=== PATIENT | male | born 1950 | race Caucasian/White ===

== ENCOUNTER → 2016-12-26 | Outpatient (CLI) | payer OTHER ==
[~2016-12-26] MED LIST: ASPI325T PO; ATOR1TAB19 PO; BISO10TA6 PO; CHLO25TA GT; DEXA4TA PO; FAMO1TAB25 PO; FLUTISP; LISI10TA4 PO; MULT1TAB10 PO; PREV15CA11 PO; PROA1AER INH
--- NOTE | 2016-12-28 12:51 | RADONC ---
RADIATION ONCOLOGY FOLLOWUP NOTE DATE: 12/26/2016 CHART NUMBER: [id number] DIAGNOSIS: Lung cancer. STAGE: IV, metastatic. ECOG PERFORMANCE STATUS: 1. FOLLOWUP NOTE: Mr. 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 The patient presents today reporting that he is generally doing well with no new complaints related to his radiation therapy. He continues to have some discomfort in the sternal area as well as the back. He continues to be short of breath but the shortness of breath has not increased or changed. He has no cough or other complaints. The patient's review of systems is positive for some continued discomfort in the back and sternal area as well as continued shortness of breath, but is otherwise noncontributory. He denies nausea, vomiting, fevers, chills, night sweats, diplopia, headaches, anxiety or depression, anorexia, weight loss, visual disturbances, chest pain, urinary or bowel difficulties, bone pain, or neurological problems. PHYSICAL EXAMINATION: The patient is a well-developed, well-nourished male in no acute distress. HEENT exam is normocephalic, atraumatic. Extraocular movements are intact. There is no palpable cervical, supraclavicular, infraclavicular, axillary, or inguinal lymphadenopathy present. Lungs are clear to auscultation and percussion. Heart has a regular rate and rhythm. Abdomen is benign with no hepatosplenomegaly, masses, or tenderness. Rectal examination reveals a normal anal sphincter tone. His prostate is smooth with no evidence of nodularity. Skeletal examination reveals no tenderness to pressure or percussion of the bony skeleton. Extremities reveal no clubbing, cyanosis, or edema. Neurologic exam is grossly intact as is the remainder of the physical examination. ASSESSMENT: The patient is clinically doing well at this point. He is scheduled for another chemotherapeutic cycle of beginning tomorrow. He is receiving chemotherapy every 3 weeks. In light of the fact that he is being managed closely by his medical oncologist, Dr. Curry and rescanning is scheduled in the near future, I have scheduled him for a followup in our office in 4 months' time. cc: *Dr. Ernesto Rosario *Dr.Stephen Curry
== END ==
LOC: M ONCR 13:44
PROVIDERS: ATTEND Radiology Radiation Oncology
DX: C34.12 Malignant neoplasm of upper lobe, left bronchus or lung (principal)

== ENCOUNTER → 2016-12-29 | Outpatient (CLI) | payer OTHER ==
--- NOTE | 2016-12-29 12:11 | REP ---
MRI BRAIN WITHOUT AND WITH CONTRAST: HISTORY: Lung carcinoma. CONTRAST: ProHance 23.5 mL. There are no areas of abnormal signal intensity in the brain. There is no intraparenchymal hemorrhage, infarct, mass or midline shift. There is no abnormal enhancement. The ventricular system and cortical sulci are dilated consistent with minimal volume loss. There is no extracerebral collection. Minimal mucosal thickening is present in the maxillary and right ethmoid sinuses. IMPRESSION: 1. There is no intracranial lesion. 2. Minimal volume loss. Signed by Jesús Ureña MD 12/29/2016 12:16 P
== END ==
LOC: M RAD 09:50
DX: C34.90 Malignant neoplasm of unspecified part of unspecified bronchus or lung (principal); R51 Headache
CPT/HCPCS: 70553; A9576

== ENCOUNTER 2017-02-13 13:49 | Outpatient (RCR) | payer OTHER | END 2017-02-16 | LOC: M ONCR 13:49 | PROVIDERS: ATTEND Radiology Radiation Oncology | DX: C34.12 Malignant neoplasm of upper lobe, left bronchus or lung (principal); C79.51 Secondary malignant neoplasm of bone ==

== ENCOUNTER → 2017-02-13 | Outpatient (CLI) | payer OTHER | LOC: M RAD 13:46 | PROVIDERS: ATTEND Radiology Radiation Oncology | DX: C34.90 Malignant neoplasm of unspecified part of unspecified bronchus or lung (principal) ==

== ENCOUNTER → 2017-02-13 | Outpatient (CLI) | payer OTHER ==
--- NOTE | 2017-02-13 11:37 | RADONC ---
RADIATION ONCOLOGY SIMULATION NOTE: DATE: 02/13/2017 CHART NO: [id number] Mr. Raymond was taken to the CT scan for CT simulation of his cervical spine field. CT was accomplished without difficulty or discomfort. Radiation treatment planning is underway and radiation treatments will begin subsequently. An immobilization device and mask were created without difficulty or discomfort. This will also be utilized throughout the course of treatment. It was done without difficulty or discomfort. I was physically present throughout the course of CT simulation.
--- NOTE | 2017-02-13 11:59 | RADONC ---
RADIATION ONCOLOGY FOLLOWUP CONSULTATION NOTE: DATE: 02/13/2017 CHART NO: [id number] DIAGNOSIS: Lung cancer. STAGE: IV, metastatic. ECOG PERFORMANCE STATUS: 2 Mr. Raymond is a very pleasant 66-year-old white male with the diagnosis of metastatic poorly differentiated adenocarcinoma of the left lung and main stem bronchus who is presenting to us today for consideration of palliative radiation therapy to his C4 vertebral body. HISTORY OF PRESENT ILLNESS: The patient is well-known to our department and was first seen by us on 10/19/2016 for consideration of palliative radiation therapy for a lesion encompassing his left upper lobe bronchus and left lower lobe bronchus. We treated the patient to that area as well as to the T5 vertebral body for a dose of 3750 cGy delivered in 15 fractions of 250 cGy each from 10/24/2016 through 11/16/2016. The patient did well with that treatment although he reports more recent increased shortness of breath, which could be expected following radiation. Over the past month or more, the patient has had increasing neck pain as well as scalp pain. An MRI of the brain was undertaken on 12/29/2016, which showed no intracranial lesions. An MRI of the C-spine was undertaken, which did show increased uptake at the C4 vertebral body. There was no cord compression. There was no evidence of nerve root compression. The signal intensity enhancement of the C4 vertebral body was consistent with metastatic disease. CT scans of the abdomen and pelvis were done on 02/05/2017 as well. This showed no evidence of liver or spleen metastases. There were multiple lytic lesions throughout the pelvic bones and within the T10 vertebral body, which appeared to be progression when compared with the PET/CT dated 10/09/2016. There were indeterminate bilateral adrenal nodules as well. A CT scan of the thorax done the same date, 02/05/2017, continued to show a lytic lesion at the T4 vertebral body, which was more well-defined and thought to be a healing metastasis. There was marked improvement of the left hilar mass and caodaism of patency of the central airways of the left lung and decreased stenosis of the left lower lobe pulmonary artery. The patient is presently on morphine and is now presenting for consideration of palliative radiation therapy for his painful C4 vertebral body metastasis. PAST MEDICAL HISTORY: The patient's past medical history is positive for hypertension, hypercholesterolemia, arthritis and paroxysmal atrial tachy arrhythmias. ALLERGIES: The patient has no known drug allergies. SOCIAL HISTORY: The patient has smoked 1-1/2 packs of cigarettes per day for 15 years. He quit 1984. He drinks alcohol socially. FAMILY HISTORY: The patient's family history is positive for mother with lung cancer. REVIEW OF SYSTEMS: The patient's review of systems is positive for continued weight loss. His has lost over 40 pounds. He has shortness of breath which he says increased over the past month or so. He also is complaining of his neck and head pain. He denies nausea, vomiting, fevers, chills, night sweats, diplopia. He does have headaches. He denies anxiety, visual disturbances, urinary or bowel difficulties. PHYSICAL EXAMINATION: Vital signs: O2 saturation 96%, blood pressure 96/60, temperature 98.7, pulse 72, respirations 20, height 6 feet 2 inches weight 254 pounds. The patient is a well-developed, well-nourished male in no acute distress. HEENT exam is normocephalic, atraumatic. Extraocular movements are intact. There is no palpable cervical, supraclavicular, infraclavicular, axillary, or inguinal lymphadenopathy present. Lungs are clear to auscultation and percussion. Heart has a regular rate and rhythm. Abdomen is benign with no hepatosplenomegaly, masses, or tenderness. Skeletal examination reveals no tenderness to pressure or percussion of the bony skeleton. Extremities reveal no clubbing, cyanosis, or edema. Neurologic exam is grossly intact, as is the remainder of the physical examination. ASSESSMENT: Mr. Raymond is presenting to us today for consideration of palliative radiation therapy to his C-spine. Clearly this is a painful lesion and therefore he is a candidate for external beam radiation therapy for palliation. I have discussed with the patient in detail the potential benefits as well as possible acute and chronic sequelae of external beam radiation therapy. We have discussed logistics of treatment planning, simulation and subsequent fractionated daily radiation treatments. I have scheduled the patient for simulation today and radiation treatments will begin subsequently. Thank you for allowing us to participate in the care of this very pleasant gentleman. If I could be of any further assistance or provide you any information, please free to contact me anytime. As always with warmest personal regards, cc: *Dr. Ernesto Rosario *Dr.Stephen Curry
== END ==
LOC: M ONCR 09:51
PROVIDERS: ATTEND Radiology Radiation Oncology
DX: C34.90 Malignant neoplasm of unspecified part of unspecified bronchus or lung (principal)

== ENCOUNTER 2017-02-19 08:40 | Outpatient (RCR) | payer OTHER ==
--- NOTE | 2017-02-19 15:11 | RADONC ---
RADIATION ONCOLOGY PROGRESS NOTE: DATE OF SERVICE: 02/19/2017 CHART NO: [id number] Mr. Raymond is presently at a dose of 600 cGy to his C-spine and is tolerating treatments quite well at this point with no complaints related to his radiation therapy. He is having no increased pain or other problems. REVIEW OF SYSTEMS: The patient's review of systems is largely noncontributory. He reports feeling much better since the change of his pain medication. He denies nausea, vomiting, fevers, chills, night sweats, diplopia, headaches, anxiety or depression, anorexia, weight loss, visual disturbances, chest pain, urinary or bowel difficulties, bone pain, or neurological problems. PHYSICAL EXAMINATION: The patient's skin is in good condition with no evidence of radiation change present. There is no moist or dry desquamation. The remainder of his physical exam remains unchanged. Mr. Raymond is tolerating treatments quite well and radiation will continue as scheduled.
--- NOTE | 2017-02-27 06:35 | RADONC ---
RADIATION ONCOLOGY PROGRESS NOTE DATE: 02/26/2017 CHART NUMBER: [id number]. PROGRESS NOTE: Mr. Hernandez is presently at a dose of 2100 centigrade to his C-spine and is tolerating treatments quite well at this point with no complaints related to his radiation therapy. He reports a total resolution of his neck pain and headaches. He is having no problems at all at this point. REVIEW OF SYSTEMS: The patient's review of systems is positive for some continued discomfort in the right hip and sacral area on the left but is otherwise noncontributory. Denies nausea, vomiting, fevers, chills, night sweats, diplopia, headaches, anxiety or depression, anorexia, weight loss, visual disturbances, chest pain, urinary or bowel difficulties, bone pain, or neurological problems. PHYSICAL EXAMINATION: The patient's skin is in good condition with no evidence of radiation change present. There is no moist or dry desquamation. The remainder of his physical exam remains unchanged. Mr. Hernandez is doing quite well and radiation will continue as scheduled.
--- NOTE | 2017-03-03 07:47 | RADONC ---
RADIATION ONCOLOGY DATE: 03/01/2017 TREATMENT SUMMARY CHART NUMBER: [id number]. DIAGNOSIS: Lung cancer stage IV, metastatic. ECOG PERFORMANCE STATUS: 0. TREATMENT SUMMARY: Mr. Raymond is a very pleasant 66-year-old white male with the diagnosis of metastatic poorly differentiated adenocarcinoma of the left lung, the main stem bronchus, who presented to us for consideration of palliative radiation therapy to his C4 vertebral body which was causing him excruciating pain and headaches. We treated the patient to his spine from the levels of C3 through C5 for a dose of 3000 cGy delivered in 10 fractions of 300 cGy each over 14 elapsed days from 02/15/2017 through 03/01/2017. The patient's vertebral bodies were treated on the linear accelerator utilizing a 6 MV photon beam via parallel opposed lateral tobin. Mr. Raymond tolerated his treatments quite well with no complaints related to his radiation therapy. He had complete resolution of his pain and actually felt quite good at the end of treatment. The patient was able to complete therapy as prescribed without interruption. I have scheduled the patient to see me again in 1 month for further followup. He will also continue to be followed by his other physicians as well. The patient is considering starting palliative radiation therapy to his right hip. He will decide within the next week. Clearly, if he wishes radiation to the hip will see him sooner than the 1 month visit. cc: Ernesto Rosario DO *Dr.Stephen Curry *Cailin Stewart MD
== END 2017-03-18 ==
LOC: M ONCR 08:40
PROVIDERS: ATTEND Radiology Radiation Oncology
DX: C79.51 Secondary malignant neoplasm of bone (principal); C34.12 Malignant neoplasm of upper lobe, left bronchus or lung

== ENCOUNTER → 2017-02-23 | Outpatient (CLI) | payer OTHER ==
--- NOTE | 2017-02-23 14:50 | REP ---
Whole body radionuclide bone scan: Whole-body scanning is performed. Additionally lateral views of the calvarium and knees are performed and oblique views of the ribs and pelvis are performed. There is no calvarial uptake. There is a single focus of uptake in the cervical spine. There is a small focus of uptake in the thoracic spine at the approximate T11 level. There is a focal zone of uptake superiorly in the left scapula and a focal zone of uptake in the inferior tip of the right scapula. There is focal intense uptake in the manubrium. There is bilateral symmetric uptake in the sternoclavicular joints, likely degenerative. There is mildly increased uptake in the acromioclavicular joints bilaterally, likely degenerative. F there are two foci of uptake in the posterior arch of the approximate left ninth rib. There is a focus of uptake laterally in the approximate right eighth rib. There is a focus of slightly increased uptake right lateral aspect of the fifth lumbar vertebra. There is focal increased uptake in the rest of the left iliac wing, focal increased uptake in the left sacroiliac. There is focal increased uptake in the proximal shaft of the left femur. There is uptake along the joint line of the right knee, likely degenerative. A small portion of the hands are within the scan field there is focal increased uptake in the visible portion of the right hand, likely degenerative. Impression: Multiple foci are identified compatible with skeletal metastases. In addition uptake in the acromioclavicular joints, right hand and right knee as likely degenerative. Signed by Parth Márquez MD 02/23/2017 02:41 P
== END ==
LOC: M RAD 10:09
PROVIDERS: ATTEND Radiology Radiation Oncology
DX: C34.90 Malignant neoplasm of unspecified part of unspecified bronchus or lung (principal)

== ENCOUNTER → 2017-03-29 | Outpatient (CLI) | payer OTHER ==
--- NOTE | 2017-03-30 10:55 | RADONC ---
RADIATION ONCOLOGY FOLLOWUP NOTE DATE: 03/29/2017 CHART NUMBER: [id number] DIAGNOSIS: Lung cancer. STAGE: IV, metastatic. ECOG PERFORMANCE STATUS: 0 FOLLOWUP NOTE: Mr. 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 The patient is well-known to our department and has been treated by us to his left lung and mainstem bronchus, as well as to his C spine from the levels of C3 to C5. Since I last saw the patient, he underwent stereotactic radiosurgery to his clivus bone at [facility] with Dr. Watkins. He has done quite well with that. The patient is now presenting complaining of left hip pain as well as left shoulder pain and right scapula pain. He is also complaining of pain over his left lateral ribs. A bone scan was done on 02/23/2017 which confirms uptake in these regions. REVIEW OF SYSTEMS: The patient's review of systems is positive for pain in the above sites, but is otherwise largely noncontributory. He denies nausea, vomiting, fevers, chills, night sweats, diplopia, headaches, anxiety or depression, anorexia, weight loss, visual disturbances, chest pain, urinary or bowel difficulties or neurological problems. He is however complaining of some shortness of breath. PHYSICAL EXAMINATION: The patient is a well-developed, well-nourished male in no acute distress. HEENT exam is normocephalic, atraumatic. Extraocular movements are intact. There is no palpable cervical, supraclavicular, infraclavicular, axillary, or inguinal lymphadenopathy present. Examination of the patient's lungs reveal a right side which is clear to auscultation and percussion. There is some wheezing and rhonchi over the left lung. Heart has a regular rate and rhythm. Abdomen is benign with no hepatosplenomegaly, masses, or tenderness. Rectal examination reveals a normal anal sphincter tone. His prostate is smooth with no evidence of nodularity. Skeletal examination reveals no tenderness to pressure or percussion of the bony skeleton. Extremities reveal no clubbing, cyanosis, or edema. Neurologic exam is grossly intact as is the remainder of the physical examination. IMAGING: I have personally reviewed the patient's bone scan dated 02/23/2017 that confirms uptake at the various sites we have discussed above. ASSESSMENT: Clearly the patient is a candidate for palliative radiation therapy and I have so informed him. I have discussed with the patient in detail the potential benefits as well as possible acute and chronic sequelae of external beam radiation therapy. We discussed the logistics of treatment planning, simulation and subsequent fractionated daily radiation treatments. I have scheduled him for simulation for initiation of treatment planning on the left femur. We are planning an treating the left femur and ribs initially and then we will treat the bilateral shoulder and scapular tobin. We will continue to monitor his blood counts closely. Thank you for allowing us to participate in the care of this very pleasant gentleman. If I could be of any further assistance or provide you any information, please feel free to contact me anytime. cc: Ernesto Rosario DO *Tessy Watkins MD *Dr.Stephen Curry
== END ==
LOC: M ONCR 10:48
PROVIDERS: ATTEND Radiology Radiation Oncology
DX: C34.12 Malignant neoplasm of upper lobe, left bronchus or lung (principal); C79.51 Secondary malignant neoplasm of bone

== ENCOUNTER 2017-04-02 14:12 | Outpatient (RCR) | payer OTHER ==
--- NOTE | 2017-04-02 15:12 | RADONC ---
RADIATION ONCOLOGY SIMULATION NOTE: DATE: 04/02/2017 CHART NO: [id number] Mr. Raymond was taken to the CT scan for CT simulation of his left hip field. CT was accomplished without difficulty or discomfort. Radiation treatment planning is underway and radiation treatments will begin subsequently. An immobilization device was created without difficulty or discomfort and will be used throughout the course of treatment. I was physically present throughout the course of CT simulation. [facility]
--- NOTE | 2017-04-17 11:57 | RADONC ---
RADIATION ONCOLOGY PROGRESS NOTE DATE: 04/17/2017 CHART NUMBER: [id number] Mr. Raymond is presently at a dose of 1200 cGy to his left hip and is tolerating treatments quite well at this point with no complaints related to his radiation therapy. He continues to have some mild hip pain as well as pain in some other bone areas. The patient's review of systems is positive for some continued bone pain. There is improvement in the area presently treated however. REVIEW OF SYSTEMS: The patient's review of systems is unremarkable. Denies nausea, vomiting, fevers, chills, night sweats, diplopia, headaches, anxiety or depression, anorexia, weight loss, visual disturbances, chest pain, urinary or bowel difficulties, bone pain, or neurological problems. PHYSICAL EXAMINATION: The patient's skin is in good condition with no evidence of moist or dry desquamation. The remainder of his physical exam remains unchanged. Mr. Raymond is tolerating treatments quite well and radiation will continue as scheduled.
== END 2017-04-18 ==
LOC: M ONCR 14:12
PROVIDERS: ATTEND Radiology Radiation Oncology
DX: C79.51 Secondary malignant neoplasm of bone (principal); C34.12 Malignant neoplasm of upper lobe, left bronchus or lung

== ENCOUNTER → 2017-04-02 | Outpatient (CLI) | payer OTHER | LOC: M RAD 13:49 | PROVIDERS: ATTEND Radiology Radiation Oncology | DX: C34.12 Malignant neoplasm of upper lobe, left bronchus or lung (principal); C79.51 Secondary malignant neoplasm of bone ==

== ENCOUNTER → 2017-04-18 | Outpatient (CLI) | payer OTHER ==
[2017-04-18 11:32] LABS: MEAN CORPUSCULAR HEMOGLOBIN 34.6 pg (27.0-33.0); MEAN CORPUSCULAR HGB CONC 35.5 g/dl (32.0-36.5); MEAN CORPUSCULAR VOLUME 97.4 fl (80.0-96.0); WHITE BLOOD COUNT 9.6 K/mm3 (4.0-10.0)
== END ==
LOC: M LAB 10:25
PROVIDERS: ATTEND Radiology Radiation Oncology
DX: C34.12 Malignant neoplasm of upper lobe, left bronchus or lung (principal); C79.51 Secondary malignant neoplasm of bone

== ENCOUNTER 2017-04-19 11:07 | Outpatient (RCR) | payer OTHER ==
[~2017-04-19 11:07] MED LIST changes: -PREV15CA11 PO; +PREV15CA18 PO; -PROA1AER INH; +PROAAER10 INH
--- NOTE | 2017-04-25 07:32 | RADONC ---
RADIATION ONCOLOGY PROGRESS NOTE: DATE OF SERVICE: 04/24/2017 CHART NO: [id number] Mr. Hernandez is presently at a dose of 2700 cGy to his left hip and is tolerating treatments quite well at this point with no complaints related to his radiation therapy. The patient reports today that the last few days he has had a significant sharp increase in his left hip pain. He also reports a new bulging of his upper thoracic spinal region. REVIEW OF SYSTEMS: The patient's review of systems is positive for a sharp left hip increase in pain with discomfort upon ambulation. It is otherwise noncontributory. He denies nausea, vomiting, fevers, chills, night sweats, diplopia, headaches, anxiety or depression, anorexia, weight loss, visual disturbances, chest pain, urinary or bowel difficulties, bone pain, or neurological problems. PHYSICAL EXAMINATION The patient is presenting in a wheelchair at this time. Examination of the treated area shows no evidence of radiation change present. There is no moist or dry desquamation. The area in his upper T lower C-spine does show a bulge, which is nontender. The remainder of his physical exam remains unchanged. I have sent the patient today for an x-ray of his left hip. That x-ray did not show any significant change. I reviewed it with our radiologist, Dr. Beebe. There is a possible pubic ramus fracture which is basically unchanged. It is not definitive. The femur itself does not show any fracture. The patient is scheduled to be seen by his medical oncologist, Dr. Curry tomorrow. We are completing his left hip radiation tomorrow as well. We are planning the shoulder and other sites for treatment for palliation. Tomorrow the patient will be meeting with Dr. Curry to decide whether he will be considered for chemotherapy. I have asked them to ask his medical oncologist if our radiation would interfere with his chemo. We could of course continue with palliative radiation therapy unless it interferes with chemotherapy if he chooses to undergo such chemo. The patient may decide on hospice or on just palliative radiation in the meantime. We await his discussion with the medical oncologist tomorrow.
--- NOTE | 2017-05-01 08:36 | RADONC ---
RADIATION ONCOLOGY PROGRESS NOTE: DATE OF SERVICE: 04/30/2017 CHART NO: [id number] Mr. Raymond underwent his first fraction of 300 cGy to his left shoulder. Radiation was tolerated without difficulty or discomfort. REVIEW OF SYSTEMS: The patient's review of systems continues to be positive for left pelvic and hip pain. He may have a fractured pubic ramus. He has also some other bone pain including his left shoulder. The review of systems is otherwise noncontributory. He denies nausea, vomiting, fevers, chills, night sweats, diplopia, headaches, anxiety or depression, anorexia, weight loss, visual disturbances, chest pain, urinary or bowel difficulties, bone pain, or neurological problems. PHYSICAL EXAMINATION: The patient's skin is in good condition with no evidence of moist or dry desquamation. Remainder of his physical exam remains unchanged. Mr. Raymond tolerated his first fraction of radiation without difficulty. He is scheduled to be seen by his medical oncologist next week to discuss further treatment changes. We await any final decisions. If we could treat larger areas of his bones without causing problems with bone marrow reserve to tolerate further therapy, we will so do. We await his final recommendations from the medical oncologist.
--- NOTE | 2017-05-04 12:17 | RADONC ---
RADIATION ONCOLOGY SIMULATION NOTE DATE: 05/04/2017 CHART NUMBER: Mr. Raymond was taken to the CT scan for CT simulation of his right shoulder. CT was accomplished without difficulty or discomfort. Radiation treatment planning is underway and radiation treatments will begin subsequently. An immobilization device was created and will be used throughout the course of treatment. I was physically present throughout the course of CT simulation.
--- NOTE | 2017-05-07 14:56 | RADONC ---
RADIATION ONCOLOGY PROGRESS NOTE DATE: 05/07/2017 CHART NUMBER: [id number] Mr. Raymond is presently at a dose of 1800 cGy to his left shoulder and is tolerating treatments quite well at this point with no complaints related to his radiation therapy. The patient continues to complain of marked pain in his left hip region. This remains unchanged. That bone is fractured and the patient is aware of that. He is taking precautions with his movements. The patient is also complaining of swelling in his lower extremities, which has been worsening somewhat over the past week. The patient is scheduled for CT scans to be undertaken to further evaluate his pelvic region and the reason for the swelling. These are scheduled for and will be done in [place]. I have requested that he have the CDs and other studies burned onto a disk so that we can see them here. In the meantime, radiation will continue as scheduled.
--- NOTE | 2017-05-10 13:25 | RADONC ---
RADIATION ONCOLOGY PROGRESS NOTE DATE: 05/10/2017 CHART NUMBER: [id number] Mr. 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 We brought the patient back to the linear accelerator today. Upon questioning him he could not remember which rib hurt. He said that with his pain medications He is having no pain anywhere in his ribs. He thought it was on the left lower posterior side near the spinal column. I applied heavy pressure and percussion over his entire rib cage and could not elicit any discomfort whatsoever. In light of this we did not do any simulations for his ribs at this point. I let him know we will be available in the future should he develop rib pain of any significance.
--- NOTE | 2017-05-14 12:40 | RADONC ---
RADIATION ONCOLOGY PROGRESS NOTE: DATE: 05/14/2017 CHART NUMBER: PROGRESS NOTE: Mr. Raymond is thus far at a dose of 2700 cGy to his left shoulder. He was last treated on 05/11/2017. On Sunday, he came in telling me that he had new left femur pain. He had, had a CT of the pelvis and other x-rays just done the day before in [place], but they were unable to get copies of the reports or the x-rays for me to review. I immediately sent the patient over for x-rays of his left femur and left hip, which were done once again on 05/11/2017. Neither showed any evidence of a femoral fracture. This morning I got a phone call from Mrs. Raymond saying that he subsequently fractured his left femur. He is now an inpatient in [place]. They are discussing various palliative options for him. I did have a lengthy discussion with this very pleasant woman on the telephone once again about the possibilities of hospice care. Clearly this disease is rapidly progressive and it may be time for them to consider all that hospice has to offer. At this point, the disease appears to be progressing more rapidly than we can get a proofer black and white on. The patient's let me know that she will get back to me pending their decision. She will also keep me informed as any developments occur in [place]. [facility]OSPITALNoam
--- NOTE | 2017-05-25 12:12 | RADONC ---
RADIATION ONCOLOGY TREATMENT SUMMARY DATE: 05/25/2017 CHART NUMBER: [id number]. DIAGNOSIS: Lung cancer stage terminal. ECOG PERFORMANCE STATUS: 4. TREATMENT SUMMARY: Mr. 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 We treated the patient to his left hip for a dose of 3000 centigrade delivered in 10 fractions of 300 centigrade each from 04/11/2017 through 04/25/2017. In addition, we treated the patient to his left shoulder for a dose of 2700 centigrade delivered in 9 fractions of 300 centigrade each from 04/30/2017 to 05/11/2017. Unfortunately, the patient's condition continued to deteriorate and he developed a fractured femur. He was taken to the hospital in [place]. We have just been informed that he has been discharged from that hospital on hospice. Since the patient will be on hospice, he is being discharged from any further treatment or followup schedules in our department. I wish we could have been of more benefit to this very pleasant gentleman. If I could provide you with any information, please free to contact me at anytime. As always warm regards. cc: MD Ernesto Loya,
== END 2017-05-18 ==
LOC: M ONCR 11:07
PROVIDERS: ATTEND Radiology Radiation Oncology
DX: C79.51 Secondary malignant neoplasm of bone (principal); C34.12 Malignant neoplasm of upper lobe, left bronchus or lung

== ENCOUNTER → 2017-04-19 | Outpatient (CLI) | payer OTHER | LOC: M RAD 09:51 | PROVIDERS: ATTEND Radiology Radiation Oncology | DX: C34.12 Malignant neoplasm of upper lobe, left bronchus or lung (principal); C79.51 Secondary malignant neoplasm of bone ==

== ENCOUNTER → 2017-04-24 | Outpatient (CLI) | payer OTHER ==
[~2017-04-24] MED LIST changes: +PREV15CA11 PO; -PREV15CA18 PO; +PROA1AER INH; -PROAAER10 INH
--- NOTE | 2017-04-24 12:19 | REP ---
LEFT HIP SERIES: Two views of the left hip are performed. A lytic lesion is seen in the left inferior pubic ramus. I cannot exclude a nondisplaced fracture at that location. Otherwise, no other acute fracture or dislocation is seen. Mild degenerative changes are seen at the hip joint with mild joint space narrowing on the subchondral sclerosis and spurring. IMPRESSION: Lytic lesion in the left inferior pubic ramus. Cannot exclude underlying nondisplaced fracture at that location. Signed by Parth Diop MD 04/24/2017 12:55 P
--- NOTE | 2017-04-24 12:20 | REP ---
LEFT FEMUR: AP and lateral views of the left femur are performed. There is a lytic lesion in the left inferior pubic ramus. I cannot exclude nondisplaced fracture at that location. No other fracture or bone lesion is seen. IMPRESSION: Lytic lesion left inferior pubic ramus. Cannot exclude nondisplaced fracture at that location. Signed by Parth Diop MD 04/24/2017 12:55 P
== END ==
LOC: M RAD 11:22
PROVIDERS: ATTEND Radiology Radiation Oncology
DX: C34.12 Malignant neoplasm of upper lobe, left bronchus or lung (principal); C79.51 Secondary malignant neoplasm of bone

== ENCOUNTER → 2017-05-04 | Outpatient (CLI) | payer OTHER | LOC: M RAD 10:13 | PROVIDERS: ATTEND Radiology Radiation Oncology | DX: C34.90 Malignant neoplasm of unspecified part of unspecified bronchus or lung (principal); C79.51 Secondary malignant neoplasm of bone ==

== ENCOUNTER → 2017-05-11 | Outpatient (CLI) | payer OTHER ==
--- NOTE | 2017-05-11 11:58 | REP ---
LEFT FEMUR: AP and lateral views of the left femur are performed. There is no fracture or dislocation identified. Mild degenerative changes are seen at the hip joint and knee joint. IMPRESSION: Mild degenerative changes at the hip and knee without fracture or dislocation. Signed by Parth Diop MD 05/11/2017 03:16 P
--- NOTE | 2017-05-11 12:08 | REP ---
LEFT HIP: Two views of the left hip are performed and compared to prior study of 04/24/2017. There are mild degenerative changes at the hip joint with mild joint space narrowing, subchondral sclerosis and spurring. Once again, there is a lytic lesion in the left inferior pubic ramus which is unchanged. I cannot exclude a nondisplaced fracture at that location. IMPRESSION: Mild degenerative changes. Lytic lesion left inferior pubic ramus. Cannot exclude nondisplaced pathologic fracture at that location. Signed by Parth Diop MD 05/11/2017 03:16 P
== END ==
LOC: M RAD 10:39
PROVIDERS: ATTEND Radiology Radiation Oncology
DX: M25.552 Pain in left hip (principal); C34.90 Malignant neoplasm of unspecified part of unspecified bronchus or lung; C79.51 Secondary malignant neoplasm of bone